=== PATIENT | male | born 1935 | race Hispanic/Latino ===

== ENCOUNTER 2017-02-19 10:40 | Emergency (ER) | payer MEDICARE ==
[2017-02-19 10:54] VITALS: TEMP 97.7; BMI 23.0
--- NOTE | 2017-02-19 11:13 | ED PDOC ---
Arrival/HPI - General Chief Complaint: Abdominal Pain Time Seen by Provider: 02/19/17 11:00 Historian: Patient - History of Present Illness Narrative History of Present Illness (Text): 02/19/17 11:05 A 82 year old male presents to the emergency department complaining of generalized abdominal pain, nausea, vomiting and diarrhea. The patient reports generalized abdominal pain began 3 days ago, then 2 days ago he had 6-8 episodes non non bloody non bilious vomiting. He states yesterday he developed non bloody watery diarrhea and the vomiting completely resolved. Patient denies any fever, symptoms, chest pain, shortness of breath or other complaints at this time. Patient was seen by Dr. Ricketts yesterday and was sent for a obstructive series, but today patient still did not feel better so Dr. Ricketts suggest the patient come to the emergency department. Patient quit smoking 20 year ago but drinks occasional. Time/Duration: Other ( 3 days ago) Symptom Onset: Other Symptom Course: Other Quality: Other Activities at Onset: Rest Context: Home Associated Symptoms (Text): 02/19/17 12:09 Patient developed generalized abdominal pain 3 days ago. He had multiple episodes of vomiting 2 days ago which have since resolved. The diarrhea began yesterday. He was seen by his PMD yesterday and had an outpatient obstructive series done. He was no better and directed to the emergency department by his PMD today. 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, 2012 - Anesthesia Hx Anesthesia Reactions: No - Suicidal Assessment Feels Threatened In Home Enviroment: No Family/Social History - Physician Review Nursing Documentation Reviewed: Yes Family/Social History: Unknown Family HX Smoking Status: Former Smoker Hx Alcohol Use: Yes (SOCIAL) Frequency of alcohol use: Socially Hx Substance Use: No Allergies/Home Meds Allergies/Adverse Reactions: Allergies No Known Allergies Allergy (Verified 02/19/17 10:53) Home Medications: Home Meds Medication Instructions Recorded Confirmed Aspirin [Ecotrin] 325 mg PO DAILY 08/13/12 02/19/17 Metoprolol Succinate 50 mg PO BID 08/13/12 02/19/17 Albuterol/Ipratropium [Combivent] 1 puff IH Q4 PRN 08/15/12 02/19/17 Omeprazole [Omeprazole] 20 mg PO DAILY 02/19/17 02/19/17 Pravastatin Sodium [Pravachol] 80 mg PO DAILY 02/19/17 02/19/17 Review of Systems - Physician Review All systems were reviewed & negative as marked: Yes - Review of Systems Constitutional: absent: Fatigue, Fevers Respiratory: absent: SOB, Cough Cardiovascular: absent: Chest Pain, Palpitations, Syncope Gastrointestinal: Abdominal Pain, Diarrhea, Nausea, Vomiting Genitourinary Male: absent: Dysuria, Frequency, Hematuria Neurological: absent: Headache, Dizziness Physical Exam Vital Signs Reviewed: Yes Vital Signs Temp Pulse Resp BP Pulse Ox 02/19/17 13:31 69 18 143/68 97 02/19/17 11:35 75 18 145/69 97 02/19/17 10:44 97.7 F 79 18 149/72 97 Temperature: Afebrile Blood Pressure: Normal Pulse: Regular Respiratory Rate: Normal Appearance: Positive for: Well-Appearing, Non-Toxic, Comfortable Pain Distress: None Mental Status: Positive for: Alert and Oriented X 3 - Systems Exam Head: Present: Atraumatic, Normocephalic Pupils: Present: PERRL Extroacular Muscles: Present: EOMI Conjunctiva: Present: Normal Mouth: Present: Moist Mucous Membranes Pharnyx: No: ERYTHEMA, EXUDATE, TONSILS ENLARGED Neck: Present: Normal Range of Motion Respiratory/Chest: Present: Clear to Auscultation, Good Air Exchange. No: Respiratory Distress, Accessory Muscle Use Cardiovascular: Present: Regular Rate and Rhythm, Normal S1, S2. No: Murmurs Abdomen: Present: Tenderness (+/- generalized tenderness with palpation), Normal Bowel Sounds. No: Distention, Peritoneal Signs, Rebound, Guarding Back: No: CVA Tenderness Upper Extremity: Present: Normal Inspection. No: Cyanosis, Edema Lower Extremity: Present: Normal Inspection. No: Edema Neurological: Present: GCS=15, CN II-XII Intact, Speech Normal. No: Motor Func Grossly Intact Skin: Present: Warm, Dry, Normal Color. No: Rashes Psychiatric: Present: Alert, Oriented x 3, Normal Insight, Normal Concentration Medical Decision Making ED Course and Treatment: 02/19/17 11:05 Impression: A 82 year old male with abdominal pain, nausea, vomiting and diarrhea. Differential Diagnosis include but are not limited to: gastritis vs. diverticulitis vs. colitis vs. viral illness Plan: -- EKG -- Abdomen/Pelvis CT -- Chest X-ray -- Labs -- Urinalysis -- Pepcid, Zofran and IV Fluids -- Reassess and disposition Progress Notes: 02/19/17 13:31 Feeling much better post-Zofran. CT scan is read by the radiologist shows no acute findings. Discharged home accompanied by and son. 02/19/17 14:56 EKG shows normal sinus rhythm rate approximately 70 with a left bundle branch block. There are no old available for comparison. - Lab Interpretations Lab Results: 02/19/17 11:45 02/19/17 11:45 Lab Results 02/19/17 11:45: Sodium 134, Potassium 3.9, Chloride 96 L, Carbon Dioxide 27, Anion Gap 15, BUN 15, Creatinine 0.8, Est GFR ( Amer) > 60, Est GFR (Non- Af Amer) > 60, Random Glucose 97, Calcium 8.9, Total Bilirubin 0.7, AST 46, ALT 41, Alkaline Phosphatase 63, Lactate Dehydrogenase 367, Total Creatine Kinase 102, Troponin I < 0.01, Total Protein 7.2, Albumin 3.7, Globulin 3.5, Albumin/ Globulin Ratio 1.1, Amylase 63, Lipase 26 02/19/17 11:45: PT 11.0, INR 1.02, APTT 28.0 02/19/17 11:45: WBC 6.6, RBC 4.07, Hgb 13.6 L, Hct 39.8 L, MCV 97.8, MCH 33.4, MCHC 34.2, RDW 13.2, Plt Count 196, MPV 9.6, Gran % 66.8, Lymph % (Auto) 23.8, Sterling % (Auto) 7.6 H, Eos % (Auto) 1.5, Baso % (Auto) 0.3, Gran # 4.37, Lymph # 1.6, Sterling # 0.5, Eos # 0.1, Baso # 0.02 02/19/17 00:51: Urine Color Yellow, Urine Appearance Clear, Urine pH 6.5, Ur Specific Floral 1.020, Urine Protein Trace H, Urine Glucose (UA) Negative, Urine Ketones Trace H, Urine Blood Negative, Urine Nitrate Negative, Urine Bilirubin Negative, Urine Urobilinogen 1.0 H, Ur Leukocyte Esterase Negative, Urine RBC 0 - 2, Urine WBC 0 - 2, Urine Bacteria Small I have reviewed the lab results: Yes - RAD Interpretation Radiology Orders: 02/19/17 11:08 ABD & PELVIS W/O PO OR IV CONT [CT] Stat 02/19/17 11:09 CHEST PORTABLE [RAD] Stat - Medication Orders Current Medication Orders: Discontinued Medications Famotidine (Pepcid) 20 mg IVP STAT STA Stop: 02/19/17 11:15 Last Admin: 02/19/17 11:45 Dose: 20 mg Sodium Chloride (Sodium Chloride 0.9%) 500 mls @ 500 mls/hr IV ONCE ONE Stop: 02/19/17 12:13 Last Admin: 02/19/17 11:45 Dose: 500 mls/hr Ondansetron HCl (Zofran Inj) 4 mg IVP STAT STA Stop: 02/19/17 11:15 Last Admin: 02/19/17 11:45 Dose: 4 mg - Scribe Statement The provider has reviewed the documentation as recorded by the Kenya Valenzuela Provider Scribe Attestation: All medical record entries made by the Kenya were at my direction and personally dictated by me. I have reviewed the chart and agree that the record accurately reflects my personal performance of the history, physical exam, medical decision making, and the department course for this patient. I have also personally directed, reviewed, and agree with the discharge instructions and disposition. Disposition/Present on Arrival - Present on Arrival Any Indicators Present on Arrival: No History of DVT/PE: No History of Uncontrolled Diabetes: No Urinary Catheter: No History of Decub. Ulcer: No History Surgical Site Infection Following: None - Disposition Have Diagnosis and Disposition been Completed?: Yes Diagnosis: Abdominal pain, Gastroenteritis, Nausea vomiting and diarrhea Disposition: HOME/ ROUTINE Disposition Time: 13:32 Patient Plan: Discharge Patient Problems: Current Active Problems Problem Status Onset Abdominal pain Acute Gastroenteritis Acute Nausea vomiting and diarrhea Acute Condition: IMPROVED Discharge Instructions (ExitCare): Dehydration (ED), Gastroenteritis (ED), Acute Nausea and Vomiting (ED), Acute Diarrhea (ED), Acute Abdominal Pain (ED) Additional Instructions: Clear liquids for 24 hours. Follow-up PMD. Follow-up in the ER as needed. Prescriptions: Ondansetron [Zofran Odt] 4 mg SL Q6 #20 odt Referrals: Soren Ricketts MD [Primary Care Provider] - Follow up with primary
[2017-02-19] MEDS ORDERED: Sodium Chloride 0.9% 500 ML IV ONE (11:14)
[2017-02-19 11:47] LABS: ADD MANUAL DIFF? NO
[2017-02-19 12:00] LABS: ALB/GLOB RATIO 1.1 (1.1-1.8); ALKALINE PHOSPHATASE 63 U/L (38-133); ALT/SGPT 41 U/L (7-56); AMYLASE 63 U/L (35-125); AST/SGOT 46 U/L (15-59); BILIRUBIN,TOTAL 0.7 mg/dL (0.2-1.3); BLOOD UREA NITROGEN 15 mg/dL (7-21); CALCIUM 8.9 mg/dL (8.4-10.5); CARBON DIOXIDE 27 mmol/L (21-33); CHLORIDE 96 mmol/L (98-107); GFR AFRICAN-AMERICAN > 60; GLUCOSE,RANDOM 97 mg/dL (70-110); LIPASE 26 U/L (23-300); POTASSIUM 3.9 mmol/L (3.6-5.0); SODIUM 134 mmol/L (132-148); TOTAL PROTEIN 7.2 g/dL (5.8-8.3)
[2017-02-19 12:04] LABS: BASO # 0.02 K/mm3 (0.0-2.0); BASO % 0.3 % (0.0-3.0); EOS # 0.1 (0.0-0.7); EOS % 1.5 % (1.5-5.0); GRAN # 4.37 (1.4-6.5); GRAN % 66.8 % (50.0-68.0); HEMATOCRIT 39.8 % (42.0-52.0); LYMPH # 1.6 (1.2-3.4); LYMPH % 23.8 % (22.0-35.0); MEAN CELL VOLUME 97.8 fL (80.0-105.0); MEAN CORPUSCULAR HEMOGLOBIN 33.4 pg (25.0-35.0); MEAN CORPUSCULAR HGB CONC 34.2 g/dl (31.0-37.0); MEAN PLATELET VOLUME 9.6 fl (7.0-11.0); MONO # 0.5 (0.1-0.6); MONO % 7.6 % (1.0-6.0); PLATELET COUNT 196 10^3/uL (120.0-450.0); RED CELL DISTRIBUTION WIDTH 13.2 % (11.5-14.5); WHITE BLOOD COUNT 6.6 10^3/ul (4.5-11.0)
[2017-02-19 12:15] LABS: INR 1.02 (0.93-1.08)
[2017-02-19 12:19] LABS: TROPONIN I < 0.01 ng/mL
--- NOTE | 2017-02-19 12:59 | CT ---
PROCEDURE: CT Abdomen and Pelvis without intravenous contrast HISTORY: ap COMPARISON: None. TECHNIQUE: Without contrast.. Contrast Dose: 0 Radiation dose: Total exam DLP = 666.86 mGy-cm. This CT exam was performed using one or more of the following dose reduction techniques: Automated exposure control, adjustment of the mA and/or kV according to patient size, and/or use of iterative reconstruction technique. FINDINGS: LOWER THORAX: Unremarkable. LIVER: Normal size, contour and attenuation. No mass. There are multiple coarse calcifications seen in a cluster in the superior right hepatic lobe, likely dystrophic. There is no biliary ductal dilatation. GALLBLADDER AND BILE DUCTS: Status post cholecystectomy. PANCREAS: Unremarkable. No gross lesion or ductal dilatation. SPLEEN: Unremarkable. ADRENALS: Unremarkable. No mass. KIDNEYS AND URETERS: Unremarkable. No hydronephrosis. No solid mass. VASCULATURE: Unremarkable. No aortic aneurysm. BOWEL: There is diverticulosis of the descending and sigmoid colon. There is no evidence of diverticulitis. Scattered colonic diverticulae are seen elsewhere. There is no bowel obstruction. APPENDIX: Unremarkable. Normal appendix. PERITONEUM: Unremarkable. No free fluid. No free air. LYMPH NODES: Unremarkable. No enlarged lymph nodes. BLADDER: Poorly distended. Grossly normal. REPRODUCTIVE: Normal prostate. 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 Severe narrowing of the L5-S1 disc space with large osteophytes consistent with degenerative disc disease. Mild lumbar levoscoliosis. No acute fracture identified. OTHER FINDINGS: None. IMPRESSION: No evidence of acute appendicitis. Sigmoid and descending colonic diverticulosis without evidence of diverticulitis. Status post cholecystectomy. Additional minor findings as above.
[2017-02-19 13:17] LABS: PH,URINE 6.5 (4.7-8.0); URINE APPEARANCE CLEAR (CLEAR); URINE BILIRUBIN NEGATIVE (NEGATIVE); URINE BLOOD NEGATIVE (NEGATIVE); URINE COLOR YELLOW (YELLOW); URINE GLUCOSE (UA) NEGATIVE (NEGATIVE); URINE KETONE TRACE mg/dL (NEGATIVE); URINE LEUKOCYTE ESTERASE NEGATIVE Leu/uL (NEGATIVE); URINE PROTEIN TRACE mg/dL (<30 mg/dL)
--- NOTE | 2017-02-19 13:17 | RAD ---
HISTORY: ap COMPARISON: 10/22/2012 FINDINGS: LUNGS: Patchy opacity at left base common nonspecific. Possible early pneumonia. Followup advised. PLEURA: No significant pleural effusion identified, no pneumothorax apparent. CARDIOVASCULAR: Normal heart size. Sternotomy wires. OSSEOUS STRUCTURES: No significant abnormalities. VISUALIZED UPPER ABDOMEN: Normal. OTHER FINDINGS: None. IMPRESSION: Left basilar opacity, possible early pneumonia. Followup advised.
[2017-02-19 13:35] LABS: URINE BACTERIA SMALL (NEG); URINE RBC 0 - 2 /hpf (0-2); URINE WBC 0 - 2 /hpf (0-6)
[2017-02-19 15:04] VITALS: BP 140/70; PULSE 70; RESP 16; O2SAT 99
--- NOTE | 2017-02-19 22:39 | CARD ---
APPROVED REPORT EKG Measurement Heart [id number] <Conclusion> Normal sinus rhythm Left bundle branch block Abnormal ECG
== END 2017-02-19 15:05 | disposition home or self-care (01) ==
LOC: ED 10:40
DX: K52.9 Noninfective gastroenteritis and colitis, unspecified (principal); R11.2 Nausea with vomiting, unspecified; R19.7 Diarrhea, unspecified; Z87.891 Personal history of nicotine dependence
CPT/HCPCS: 71010; 74176; 80053; 81001; 82150; 82550; 83615; 83690; 84484; 85025; 85610; 85730; 93005; 96361; 96374; 96375; 99285; J2405; J7040

== ENCOUNTER 2018-02-09 17:45 | Emergency (ER) | payer MEDICARE ==
[2018-02-09 17:45] VITALS: BMI 23.0
[2018-02-09 18:05] VITALS: BP 159/69; PULSE 74; RESP 18; O2SAT 99
[2018-02-09] MEDS ORDERED: TDAP Vaccine 0.5 mL Syr IM ONE (18:18)
--- NOTE | 2018-02-09 18:22 | ED PDOC ---
Arrival/HPI - General Chief Complaint: Abnormal Skin Integrity Time Seen by Provider: 02/09/18 18:15 Historian: Patient - History of Present Illness Narrative History of Present Illness (Text): 02/09/18 18:25 82 y/o male, pmh including htn/hyperlipidemia/cervical spine surgery, last tetanus over 10 years ago, taking aspirin daily, c/o head injury s/p hit by the tree branch about 2 hours ago. pt. stated that he was cutting the tree branch approx. fall on the top of the head, no LOC, able to recall the whole event, no neck or back pain, no numbness or tingling, no extremity pain, no palpitation, no other medical or psychological complaints. 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 - Anesthesia Hx Anesthesia Reactions: No - Suicidal Assessment Feels Threatened In Home Enviroment: No Family/Social History - Physician Review Nursing Documentation Reviewed: Yes Family/Social History: Unknown Family HX Smoking Status: Former Smoker Hx Alcohol Use: Yes (SOCIAL) Hx Substance Use: No Allergies/Home Meds Allergies/Adverse Reactions: Allergies No Known Allergies Allergy (Verified 02/09/18 18:02) Home Medications: Home Meds Medication Instructions Recorded Confirmed Aspirin [Ecotrin] 325 mg PO DAILY 08/13/12 02/09/18 Metoprolol Succinate 50 mg PO BID 08/13/12 02/09/18 Albuterol/Ipratropium [Combivent] 1 puff IH Q4 PRN 08/15/12 02/09/18 Omeprazole [Omeprazole] 20 mg PO DAILY 02/19/17 02/09/18 Pravastatin Sodium [Pravachol] 80 mg PO DAILY 02/19/17 02/09/18 Review of Systems - Review of Systems Constitutional: absent: Fatigue, Fevers Eyes: absent: Vision Changes ENT: absent: Hearing Changes Respiratory: absent: SOB, Cough Cardiovascular: absent: Chest Pain Gastrointestinal: absent: Abdominal Pain, Nausea, Vomiting Musculoskeletal: absent: Arthralgias, Back Pain Skin: Other (+abrasion). absent: Rash, Pruritis Neurological: absent: Headache, Dizziness Psychiatric: absent: Anxiety, Depression, Suicidal Ideation Physical Exam Vital Signs Reviewed: Yes Vital Signs Temp Pulse Resp BP Pulse Ox 02/09/18 18:58 98.0 F 02/09/18 18:04 74 18 159/69 H 99 Blood Pressure: Normal Pulse: Regular Respiratory Rate: Normal Appearance: Positive for: Well-Appearing, Non-Toxic, Comfortable Pain Distress: None Mental Status: Positive for: Alert and Oriented X 3 - Systems Exam Head: Present: Contusion, Swelling, Abrasion, Other (+visible superficial abrasion apporx. 1cm diameter noted, no deformity). No: Ecchymosis, Laceration Pupils: Present: PERRL Extroacular Muscles: Present: EOMI Conjunctiva: Present: Normal Ears: Present: NORMAL TM, Normal Canal. No: Erythema Mouth: Present: Moist Mucous Membranes Pharnyx: Present: Normal. No: ERYTHEMA, EXUDATE, TONSILS ENLARGED Nose (External): Present: Atraumatic. No: Abrasion, Contusion, Laceration Nose (Internal): Present: Normal Inspection, No Active Bleeding. No: Rhinorrhea , Septal Hematoma, Epistaxis Neck: Present: Normal Range of Motion, Trachea Midline. No: Meningeal Signs, MIDLINE TENDERNESS, Paraspinal Tenderness, Lymphadenopathy Respiratory/Chest: Present: Clear to Auscultation, Good Air Exchange. No: Respiratory Distress, Accessory Muscle Use Cardiovascular: Present: Regular Rate and Rhythm, Normal S1, S2. No: Murmurs Abdomen: No: Tenderness, Distention, Peritoneal Signs, Rebound, Guarding Back: Present: Normal Inspection. No: Midline Tenderness, Paraspinal Tenderness Upper Extremity: Present: Normal Inspection. No: Cyanosis, Edema Lower Extremity: Present: Normal Inspection, Normal ROM, Neurovascularly Intact , Capillary Refill < 2 s. No: Edema, Deformity Neurological: Present: GCS=15, CN II-XII Intact, Speech Normal, Motor Func Grossly Intact, Gait Normal, Memory Normal Skin: Present: Warm, Dry, Normal Color. No: Rashes Psychiatric: Present: Alert, Oriented x 3, Normal Insight, Normal Concentration Medical Decision Making ED Course and Treatment: 02/09/18 18:28 -tdap, refusing pain med -CT head -clean with saline and betadine, bacitracin and gauze dressing. 02/09/18 19:38 -CT head show no acute findings. -Pt. is asymptomatic, will discharge home. -Discharge home with bacitracin oinment, ice compression, follow up with your own pmd within 2 days, return to the ER for any new or worsening signs or symptoms. - Lab Interpretations I have reviewed the lab results: Yes - RAD Interpretation Radiology Orders: 02/09/18 18:18 HEAD W/O CONTRAST [CT] Stat Brain: Periventricular hypoattenuation is likely related to small vessel disease. No hemorrhage. Ventricles: Unremarkable. No ventriculomegaly. Bones/joints: Unremarkable. No acute fracture. Soft tissues: Unremarkable. Sinuses: Unremarkable as visualized. No acute sinusitis. Mastoid air cells: Unremarkable as visualized. No mastoid effusion. Other findings: Postsurgical changes are noted in the right temporal region. IMPRESSION: No acute findings. Thank you for allowing us to participate in the care of your patient. Dictated and Authenticated by: Madelin Coto MD 02/09/2018 7:08 PM Eastern Time ([place] & [place]) Clean Room Operator: Radiologist - Medication Orders Current Medication Orders: Discontinued Medications Tetanus/Reduced Diphtheria/Acell Pertussis (Boostrix Vaccine Inj) 0.5 ml IM .ONCE ONE Stop: 02/09/18 18:19 Last Admin: 02/09/18 19:04 Dose: 0.5 ml MAR Immunization Data Document 02/09/18 19:04 SS (Rec: 02/09/18 19:04 SS [id number]) Immunization Data Vaccine Information Sheet Given Yes Immunization Registry Document 02/09/18 19:04 SS (Rec: 02/09/18 19:04 SS [id number]) Immunization Registry Consent Date 02/09/18 - PA / HEAD SILVERMAN / Resident Statement /DO has reviewed & agrees with the documentation as recorded. Disposition/Present on Arrival - Present on Arrival Any Indicators Present on Arrival: No History of DVT/PE: No History of Uncontrolled Diabetes: No Urinary Catheter: No History of Decub. Ulcer: No History Surgical Site Infection Following: None - Disposition Have Diagnosis and Disposition been Completed?: Yes Diagnosis: Head injury, Scalp abrasion Disposition: HOME/ ROUTINE Disposition Time: 18:28 Patient Plan: Discharge Patient Problems: Current Active Problems Problem Status Onset Head injury Acute Scalp abrasion Acute Condition: GOOD Additional Instructions: -Discharge home with bacitracin oinment, ice compression, follow up with your own pmd within 2 days, return to the ER for any new or worsening signs or symptoms. Prescriptions: Bacitracin Ointment [Bacitracin] 1 appful TOP BID #15 g Referrals: Soren Ricketts MD [Primary Care Provider] - Follow up with primary Forms: WORK NOTE
[2018-02-09 18:59] VITALS: TEMP 98
--- NOTE | 2018-02-10 08:01 | CT ---
PROCEDURE: CT HEAD WITHOUT CONTRAST. HISTORY: head injury COMPARISON: None available. TECHNIQUE: Axial computed tomography images were obtained through the head/brain without intravenous contrast. Radiation dose: Total exam DLP = 1003 mGy-cm. This CT exam was performed using one or more of the following dose reduction techniques: Automated exposure control, adjustment of the mA and/or kV according to patient size, and/or use of iterative reconstruction technique. FINDINGS: HEMORRHAGE: No intracranial hemorrhage. BRAIN: Scattered focal lucencies in the subcortical and periventricular white matter suggestive for chronic microvascular ischemic change. Focal areas of low attenuation seen within the left caudate head as well as the right basal ganglia suggestive for lacunar infarcts. VENTRICLES: Unremarkable. No hydrocephalus. CALVARIUM: Unremarkable. PARANASAL SINUSES: Mild mucosal thickening of the bilateral maxillary sinuses. MASTOID AIR CELLS: Unremarkable as visualized. No inflammatory changes. OTHER FINDINGS: Postsurgical changes in the right temporal region. IMPRESSION: Chronic microvascular ischemic changes. Postsurgical changes in the right temporal region. No acute intracranial abnormality. If focal neurologic deficit persists, consider further evaluation with MRI. These findings were preliminarily reported at 7:08 p.m. on 02/09/[address] Madelin Coto from [facility].
== END 2018-02-09 22:29 | disposition home or self-care (01) ==
LOC: ED 17:45
DX: S00.01XA Abrasion of scalp, initial encounter (principal); W22.8XXA Striking against or struck by other objects, initial encounter; Y93.H2 Activity, gardening and landscaping; Y92.89 Other specified places as the place of occurrence of the external cause; Z23 Encounter for immunization